=== PATIENT | female | born 1945 | race African-American/Black ===

== ENCOUNTER 2023-02-22 11:14 | Emergency (ER) | payer OTHER ==
[2023-02-22 11:27] VITALS: PULSE 71; RESP 17; TEMP 98.1; BMI 21.9
[2023-02-22 12:09] VITALS: BP 181/67
== END 2023-02-22 12:45 | disposition home or self-care (01) ==
LOC: JER 11:14
DX: I10 Essential (primary) hypertension (principal); Z76.0 Encounter for issue of repeat prescription
CPT/HCPCS: 99281-25